=== PATIENT | female | born 1995 | race Caucasian/White ===

== ENCOUNTER 2017-09-11 09:00 | Emergency (ER) | payer SELFPAY | END 2017-09-11 10:31 | disposition home or self-care (01) | PROVIDERS: Emergency Provider Nurse Practitioner; Visit Provider Nurse Practitioner | DX: J10.1 Influenza due to other identified influenza virus with other respiratory manifestations (principal); J45.909 Unspecified asthma, uncomplicated; Z88.1 Allergy status to other antibiotic agents; Z88.2 Allergy status to sulfonamides | CPT/HCPCS: 87804; 87880; 99201 ==

== ENCOUNTER 2018-11-21 06:17 | Outpatient (CLI) | payer OTHER, SELFPAY ==
[2018-11-21 06:27] VITALS: BMI 39.6
[2018-11-21 06:56] VITALS: BP 113/78; PULSE 104; RESP 18; TEMP 36.7; O2SAT 97; BMI 39.6
[2018-11-21 07:31] LABS: Microscopic, Urine URINE MICROSCOPIC (MICROSCOPIC)
[2018-11-21 07:40] LABS: Appearance,Urine SL CLOUDY (Clear); Bilirubin,Urine Negative (Negative); Blood, Urine Negative (Negative); Color,Urine YELLOW (Yellow); Glucose,Urine (UA) Negative (Negative); Ketones,Urine Negative (Negative); Leukocyte Esterase,Urine 1+ (Negative); Nitrate,Urine Negative (Negative); PH,Urine 6.5 (5.0-8.5); Protein,Urine Negative (Negative); Specific Gravity, Urine 1.015 (1.005-1.030); Urobilinogen,Urine 0.2 EU/dl (0.2)
[2018-11-21 07:47] LABS: Amphetamine/Metha Screen,Urine Negative ng/mL (<1000); Barbiturates Screen,Urine Negative ng/mL (<200); Benzodiazepines Screen,Urine Negative ng/mL (<200); Cannabinoid Screen,Urine Negative ng/mL (<50); Cocaine Screen,Urine Negative ng/mL (<300); Methadone Screen,Urine Negative ng/mL (<300); Opiate Screen,Urine Negative ng/mL (<300); Phencyclidine Screen,Urine Negative ng/mL (<25)
[2018-11-21 07:51] LABS: Bacteria,Urine Trace /lpf; Squamous Epithelial Cell,Urine 20-50 #/hpf (0-5)
== END 2018-11-21 08:00 | disposition home or self-care (01) ==
LOC: OBOUT 06:21 → OB 06:21
PROVIDERS: Obstetrics & Gynecology; PCP Emergency Medicine; Visit Provider Obstetrics & Gynecology
DX: O26.893 Other specified pregnancy related conditions, third trimester (principal); Z3A.38 38 weeks gestation of pregnancy; R10.30 Lower abdominal pain, unspecified; M54.5 Low back pain
CPT/HCPCS: 59025; 80305; 81001; 87086

== ENCOUNTER → 2019-11-18 11:22 | Outpatient (CLI) | payer OTHER, SELFPAY ==
[2019-11-18 11:41] LABS: Basophils % 0.3 % (0.1-2.0); Eosinophils # 0.1 K/mm3 (0.0-0.4); Eosinophils % 1.7 % (0.1-12.0); Hematocrit 41.7 % (37.0-47.0); Hemoglobin 13.6 g/dL (12.2-16.2); Lymphocytes % 33.7 % (10-50); Mean Corpuscular HGB Conc 32.6 g/dL (31.8-35.4); Mean Corpuscular Hemoglobin 29.3 pg (27.0-31.2); Mean Corpuscular Volume 89.8 fl (81-99); Mean Platelet Volume 9.4 fl (7.4-10.4); Monocytes # 0.3 K/mm3 (0.1-1.0); Monocytes % 4.1 % (1.7-9.3); Neutrophils # 3.6 K/mm3 (1.8-7.8); Neutrophils % 60.2 % (37.0-80.0); Platelet Count 228 K/mm3 (142-424); Red Blood Count 4.64 M/mm3 (4.20-5.40); Red Cell Distribution Width 13.1 % (11.5-17.5); White Blood Count 5.9 K/mm3 (4.8-10.8)
[2019-11-18 13:16] LABS: Alanine Aminotransferase 16 U/L (12-78); Albumin Level 4.6 g/dl (3.5-5.0); Albumin/Globulin Ratio 1.4 (1.1-1.8); Alkaline Phosphatase 61 U/L (38-126); Aspartate Amino Transferase 25 U/L (14-36); Blood Urea Nitrogen 10 mg/dl (7-17); Calcium 9.7 mg/dl (8.4-10.2); Carbon Dioxide 27 mmol/L (22.0-30.0); Chloride 102 mmol/L (98-107); Estimated Glomerular Filt Rate 122 ml/min (>60); GFR (African American) 147 ML/MIN (>60); Globulin 3.2 g/dL (1.3-3.2); Glucose 74 mg/dl (74-100); Sodium 137 mmol/L (136-145); Total Protein,Serum 7.8 g/dl (6.3-8.2)
[2019-11-19 16:22] LABS: Vitamin B12 371 pg/mL (232-1245); Vitamin D 25 Hydroxy 25.9 ng/mL (30.0-100.0)
== END ==
PROVIDERS: Visit Provider Nurse Practitioner Family
DX: R20.2 Paresthesia of skin (principal); R42 Dizziness and giddiness; E55.9 Vitamin D deficiency, unspecified
CPT/HCPCS: 36415; 80053; 82607; 82652; 84443; 85025

== ENCOUNTER → 2019-11-27 09:41 | Outpatient (CLI) | payer OTHER, SELFPAY ==
--- NOTE | 2019-11-27 09:44 | MR_ITS ---
PROCEDURE: MR HEAD/BRAIN WO/W CON CLINICAL INDICATION: PARESTHESIA, DIZZINESS, MIGRAINE W/AURA AND WOUT STATUS MIGR Severe headache COMPARISON: No exams were available for comparison TECHNIQUE: Routine multiplanar multi echo sequences are performed without and with gadolinium enhancement. FINDINGS: No midline shift, mass effect, intracranial hemorrhage, or hydrocephalus is evident. The cerebellopontine angles, cerebellum, and brainstem are unremarkable. No enhancing lesions are evident. 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 No abnormal enhancement of the wall. No thickening of the wall. The pituitary, optic chiasm, corpus callosum, and craniocervical junction have an unremarkable appearance. There is opacified left anterior ethmoid air cell. No sinus air-fluid levels or mastoid effusion. IMPRESSION: 1. No acute intracranial findings. 2. 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 Dictated by: Refugio Sanders MD 11/28/2019 11:01 Electronically signed by Refugio Sanders MD in [place] 11/28/2019 11:01
== END ==
PROVIDERS: PCP Nurse Practitioner Family; Visit Provider Nurse Practitioner Family
DX: G43.109 Migraine with aura, not intractable, without status migrainosus (principal); R20.2 Paresthesia of skin; R42 Dizziness and giddiness
CPT/HCPCS: 70553; A9576

== ENCOUNTER 2020-06-09 09:09 | Emergency (ER) | payer OTHER, SELFPAY ==
[2020-06-09 09:10] VITALS: BP 102/75; PULSE 72; RESP 16; TEMP 36.6; O2SAT 98; BMI 35.7
--- NOTE | 2020-06-09 09:42 | HMH.EDUTC ---
[facility] [place] Disposition Clinical Impression: Sinusitis Qualifiers: Sinusitis location: unspecified location Chronicity: unspecified Qualified Code(s): J32.9 - Chronic sinusitis, unspecified Disposition: Home, Self-Care Condition on Discharge: Good Instructions: Sinusitis, Sinus Headache, DI for Sinusitis Additional Instructions: *Monitor Temp, Over the counter Motrin or Tylenol as directed/as needed Tylenol every 4 hours and Motrin every 6 hours (as long as your family doctor has told you that you can take it) for fever or pain. and straight to ER if unable to lower temp less than 101.0 after medication given *Warm salt water gargles may help to soothe the throat *Throat Lozenges *Warm fluids like tea with honey may help to soothe the throat *Sleep elevated *Humidifier/Vaporizer *Flonase 2 sprays in each nostril daily but be aware that it may take 2-3 days before you notice improvement Take medication as prescribed Follow up IMMEDIATELY for new or worsening symptoms or no Noticeable improvement over the next 48-72 hours. 911 for difficulty breathing or swallowing Prescriptions: Fluticasone Propionate [Flonase 50mcg nasal spray 16gm] 1 - 2 spr NS DAILY #1 bottle Transmission Status: Received by [facility] # methylPREDNISolone [Medrol 4mg tab] 4 mg PO DIRECTED #21 tab Transmission Status: Received by [facility] # Azithromycin [Z-Zach 250mg Tab] 250 mg PO DIRECTED #6 tab Transmission Status: Received by [facility] # Referrals: Honey Duran PA [Physician National Insurance Officer] - Time of Disposition: 09:49 Medical Decision Making - [place] Inquiry Pt receiving controlled substance: No [place] was queried for this patient: No Vital Signs: 06/09/20 09:10 06/09/20 09:55 Temperature 97.8 F 98.2 F Temperature Source Oral Oral Pulse Rate 70 Pulse Rate [Right] 72 Respiratory Rate 16 16 Blood Pressure 128/70 Blood Pressure [Right Arm] 102/75 L Blood Pressure Mean [Right Arm] 84 Blood Pressure Source Automatic Cuff Blood Pressure Source [Right Arm] Automatic Cuff Blood Pressure Position Sitting Blood Pressure Position [Right Arm] Sitting 02 Sat by Pulse Oximetry 98 Oxygen Delivery Method Room Air Room Air [facility] [place] HPI - General Stated complaint: sinus infection symptoms Time Seen by Provider: 06/09/20 09:43 Mode of Arrival: Ambulatory Source of Information: Patient Limitations: No Limitations Description of Symptoms (Recalled from Triage Doc. by RN): PT c/o sinus pressure and pain for the past three days HEENT Symptoms (Recalled from RN notes): Yes (sinus pain) Resp Symptoms (Recalled from RN notes): No Skin Symptoms (Recalled from RN notes): No MS Symptoms (Recalled from RN notes): No Functional Status (Recalled from RN notes): na - History of Present Illness Provider Complaint: Patient states that she has been having sinus pain and pressure for over a week that has got worse over the last 3 days States that today she noticed she was blowing out yellowish green mucous and her throat was scratchy so she came in to get checked - Related Data Previous Rx's Medication Instructions Recorded Azithromycin [Z-Zach 250mg Tab] 250 mg PO DIRECTED #6 tab 06/09/20 Fluticasone Propionate [Flonase 1 - 2 spr NS DAILY #1 bottle 06/09/20 50mcg nasal spray 16gm] methylPREDNISolone [Medrol 4mg 4 mg PO DIRECTED #21 tab 06/09/20 tab] Allergies Allergy/AdvReac Type Severity Reaction Status Date / Time amoxicillin [AMOXICILLIN] Allergy Intermediate Verified 06/09/20 09:20 Sulfa (Sulfonamide Allergy Intermediate Verified 06/09/20 09:20 Antibiotics) [SULFA (SULFONAMIDE ANTIBIOTICS)] - Worker's Comp Is this a Worker's Comp case?: No [facility] History - Hepatitis A Screen Drug use history?: No High risk sexual behaviors?: No History of sexually transmitted infection?: No Currently employed?: No Childcare worker?: No Do you h
[2020-06-09 09:55] VITALS: BP 128/70; PULSE 70; RESP 16; TEMP 36.8; O2SAT 98
== END 2020-06-09 09:56 | disposition home or self-care (01) ==
PROVIDERS: Emergency Provider Nurse Practitioner; PCP Nurse Practitioner Family
DX: J32.9 Chronic sinusitis, unspecified (principal); Z88.1 Allergy status to other antibiotic agents; Z88.2 Allergy status to sulfonamides
CPT/HCPCS: 99201

== ENCOUNTER → 2021-05-13 11:08 | Outpatient (CLI) | payer OTHER, SELFPAY | DX: Z01.812 Encounter for preprocedural laboratory examination (principal); Z11.52 Encounter for screening for COVID-19 | CPT/HCPCS: U0003 ==

== ENCOUNTER → 2021-06-06 14:02 | Outpatient (CLI) | payer OTHER, SELFPAY | PROVIDERS: PCP Internal Medicine Adolescent Medicine; Visit Provider Nurse Practitioner | DX: Z20.822 Contact with and (suspected) exposure to COVID-19 (principal) | CPT/HCPCS: C9803; U0003; U0005 ==

== ENCOUNTER 2021-07-05 17:46 | Emergency (ER) | payer OTHER, SELFPAY ==
[2021-07-05 18:43] VITALS: BP 148/76; PULSE 89; RESP 18; TEMP 36.9; O2SAT 100; BMI 34.9
[2021-07-05 18:58] LABS: UTC Strep Screen (Rapid) Positive (Negative)
--- NOTE | 2021-07-05 19:13 | HMH.EDUTC ---
[facility] [place] Disposition Clinical Impression: Strep throat Disposition: Home, Self-Care Condition on Discharge: Good Instructions: Strep Throat, DI for Strep Throat Additional Instructions: Drink plenty of fluids. Take tylenol or ibuprofen for pain or fever. Take the medications as directed. Follow up with your regular doctor. GO TO THE ER FOR ANY WORSENING SYMPTOMS Throw your tooth brush away and get a new one. Prescriptions: Brompheniramine/Pseudoephed/Dm [Bromfed Dm Cough Syrup] 5 ml PO Q6HP PRN #240 ml PRN Reason: Cough Transmission Status: Received by [facility] # predniSONE [Deltasone 10mg tablet] 10 mg PO BID 3 Days #6 tab Transmission Status: Received by [facility] # Cefdinir [Omnicef 300mg Capsule] 300 mg PO BID #20 cap Transmission Status: Received by [facility] # Referrals: Luca Salgado MD [Primary Care Provider] - Forms: Work/School Release Time of Disposition: 19:16 Medical Decision Making - Medical Records Medical records reviewed: No: I reviewed the patient's medical records. - [place] Inquiry Pt receiving controlled substance: No Vital Signs: 07/05/21 18:43 07/05/21 19:17 Temperature 98.4 F 98.4 F Temperature Source Oral Pulse Rate 89 Pulse Rate [Left] 89 Respiratory Rate 18 16 Blood Pressure 148/76 H Blood Pressure [Right Arm] 148/76 H Blood Pressure Mean [Right Arm] 100 02 Sat by Pulse Oximetry 100 - Lab Data Lab results reviewed: Yes: I reviewed the patient's lab results. Lab Results 07/05/21 18:52: Strep Scn Rapid Clinic Positive A [facility] [place] HPI - General Stated complaint: sore throat,cough,maik,runny nose Time Seen by Provider: 07/05/21 19:13 Mode of Arrival: Ambulatory Source of Information: Patient Description of Symptoms (Recalled from Triage Doc. by RN): pt c/o a persistant cough, sore throat and nasal drainage/congestion x2 weeks. HEENT Symptoms (Recalled from RN notes): Yes (sore throat and runny nose) Resp Symptoms (Recalled from RN notes): Yes (cough) Skin Symptoms (Recalled from RN notes): No MS Symptoms (Recalled from RN notes): No Functional Status (Recalled from RN notes): na - History of Present Illness Provider Complaint: She c/o sore throat for the past 1 week. She has been tested for covid twice and it has been negative. She has had chilling and a dry cough also. She works in a day care. - Related Data Previous Rx's Medication Instructions Recorded Azithromycin [Z-Zach 250mg Tab] 250 mg PO DIRECTED #6 tab 06/09/20 Fluticasone Propionate [Flonase 1 - 2 spr NS DAILY #1 bottle 06/09/20 50mcg nasal spray 16gm] methylPREDNISolone [Medrol 4mg 4 mg PO DIRECTED #21 tab 06/09/20 tab] Brompheniramine/Pseudoephed/Dm 5 ml PO Q6HP PRN #240 ml 07/05/21 [Bromfed Dm Cough Syrup] Cefdinir [Omnicef 300mg Capsule] 300 mg PO BID #20 cap 07/05/21 predniSONE [Deltasone 10mg tablet] 10 mg PO BID 3 Days #6 tab 07/05/21 Allergies Allergy/AdvReac Type Severity Reaction Status Date / Time amoxicillin [AMOXICILLIN] Allergy Intermediate Verified 06/09/20 09:20 Sulfa (Sulfonamide Allergy Intermediate Verified 06/09/20 09:20 Antibiotics) [SULFA (SULFONAMIDE ANTIBIOTICS)] - Worker's Comp Is this a Worker's Comp case?: No [facility] History - Hepatitis A Screen Drug use history?: No High risk sexual behaviors?: No History of sexually transmitted infection?: No Currently employed?: No Childcare worker?: No Do you have indoor plumbing?: Yes Do you have electricity?: Yes Attestation statement:: This patient has been screened for Hepatitis A risk factors. I have reviewed the patient's past medical history: Yes Medical History: Denies:: Cancer, Diabetes Mellitus Type 1, Diabetes Mellitus Type 2 (gestational diabetes with first ), MRSA Laterality Cases: Bilateral: Tonsillectomy Other Surgeries: No: Amputation: No Fractures: No - So
[2021-07-05 19:17] VITALS: BP 148/76; PULSE 89; RESP 16; TEMP 36.9
== END 2021-07-05 19:21 | disposition home or self-care (01) ==
PROVIDERS: Emergency Provider Nurse Practitioner Family; PCP Internal Medicine Adolescent Medicine
DX: J02.0 Streptococcal pharyngitis (principal)
CPT/HCPCS: 87880; 99202; G0463

== ENCOUNTER 2021-07-12 11:54 | Emergency (ER) | payer OTHER, SELFPAY ==
[2021-07-12 11:54] VITALS: BP 135/85; PULSE 100; RESP 20; TEMP 36.7; O2SAT 100; BMI 35.9
--- NOTE | 2021-07-12 13:22 | HMH.EDUTC ---
[facility] [place] Disposition Clinical Impression: Cough Disposition: Home, Self-Care Condition on Discharge: Good Instructions: Cough, Benzonatate Additional Instructions: *Monitor Temp, Over the counter Motrin or Tylenol as directed/as needed Tylenol every 4 hours and Motrin every 6 hours (as long as your family doctor has told you that you can take it) for fever or pain. and straight to ER if unable to lower temp less than 101.0 after medication given *Warm salt water gargles may help to soothe the throat *Throat Lozenges *Warm fluids like tea with honey may help to soothe the throat *Sleep elevated *Humidifier/Vaporizer Take cough medication as prescribed Follow up IMMEDIATELY for new or worsening symptoms or no Noticeable improvement over the next 48-72 hours. 911 for difficulty breathing or swallowing You were tested for today for COVID19 your test result should be back in the next 24-48 hours, you may check your [facility] Portal for your results if you have problems logging on you may call the [facility] You was given a handout with instructions for Self Quarantine and Self isolation for while you wait on test results and what to do if they are positive If you are positive the Health Dept will be contacting you also Make sure to take your Vitamins Vit. C Vit D and Zinc if you can take them Prescriptions: Benzonatate [Tessalon Perle 100mg Cap*] 100 mg PO TID PRN #30 cap PRN Reason: Cough Transmission Status: Pending to [facility] #[id number] Referrals: Luca Salgado MD [Primary Care Provider] - Forms: Work/School Release Time of Disposition: 13:28 Medical Decision Making - [place] Inquiry Pt receiving controlled substance: No [place] was queried for this patient: No Vital Signs: 07/12/21 11:54 Temperature 98.1 F Temperature Source Oral Pulse Rate [Left Radial] 100 H Respiratory Rate 20 Blood Pressure [Right Arm] 135/85 Blood Pressure Mean [Right Arm] 101 Blood Pressure Source [Right Arm] Automatic Cuff Blood Pressure Position [Right Arm] Sitting 02 Sat by Pulse Oximetry 100 Oxygen Delivery Method Room Air [facility] [place] HPI - General Stated complaint: cough Time Seen by Provider: 07/12/21 13:22 Mode of Arrival: Ambulatory Source of Information: Patient Limitations: No Limitations Description of Symptoms (Recalled from Triage Doc. by RN): persistant cough and body aches, coughing so much it makes her jaw lock up HEENT Symptoms (Recalled from RN notes): No Resp Symptoms (Recalled from RN notes): Yes Skin Symptoms (Recalled from RN notes): No MS Symptoms (Recalled from RN notes): No Functional Status (Recalled from RN notes): na - History of Present Illness Provider Complaint: Patient states that she was recently seen and treated for strep throat and cough States that she has used all her cough medication and still having cough States that she was worried that she may have COVID and wanted to get tested again due to she started having low grade fever and body aches - Related Data Previous Rx's Medication Instructions Recorded Azithromycin [Z-Zach 250mg Tab] 250 mg PO DIRECTED #6 tab 06/09/20 Fluticasone Propionate [Flonase 1 - 2 spr NS DAILY #1 bottle 06/09/20 50mcg nasal spray 16gm] methylPREDNISolone [Medrol 4mg 4 mg PO DIRECTED #21 tab 06/09/20 tab] Brompheniramine/Pseudoephed/Dm 5 ml PO Q6HP PRN #240 ml 07/05/21 [Bromfed Dm Cough Syrup] Cefdinir [Omnicef 300mg Capsule] 300 mg PO BID #20 cap 07/05/21 predniSONE [Deltasone 10mg tablet] 10 mg PO BID 3 Days #6 tab 07/05/21 Benzonatate [Tessalon Perle 100mg 100 mg PO TID PRN #30 cap 07/12/21 Cap*] Allergies Allergy/AdvReac Type Severity Reaction Status Date / Time amoxicillin [AMOXICILLIN] Allergy Intermediate Verified 06/09/20 09:20 Sulfa (Sulfonamide Allergy Intermediate Verified 06/09/20 09:20 Antibiotics) [SULFA (SULFONAMIDE ANTIBIOTICS)] - Worker's Comp Is this a Worker's Comp case?: No [facility] His
[2021-07-12 13:43] VITALS: BP 135/85; PULSE 100; RESP 20; TEMP 36.7; O2SAT 100
== END 2021-07-12 13:45 | disposition home or self-care (01) ==
PROVIDERS: Emergency Provider Nurse Practitioner; PCP Internal Medicine Adolescent Medicine
DX: U07.1 COVID-19 (principal); R05.3 Chronic cough
CPT/HCPCS: 99202; C9803; G0463; U0003; U0005

== ENCOUNTER 2021-11-17 14:03 | Emergency (ER) | payer OTHER, SELFPAY ==
[2021-11-17] VITALS (7 sets, daily range): BP systolic 98–136; BP diastolic 53–84; PULSE 94–102; RESP 16–18; TEMP 36.9–37.1; O2SAT 97–100; BMI 36.6
[2021-11-17 14:28] LABS: Microscopic, Urine URINE MICROSCOPIC (MICROSCOPIC)
--- NOTE | 2021-11-17 14:34 | HMH.EDNVD ---
ED Disposition Clinical Impression: Gastroenteritis Disposition: Home, Self-Care Condition on Discharge: Good Instructions: DI for Viral Gastroenteritis -- Adult Prescriptions: Promethazine HCl [Phenergan 25mg tab] 25 mg PO BID #12 tab Transmission Status: Pending to [facility] #[id number] Referrals: Luca Salgado MD [Primary Care Provider] - - Critical Care Critical Care Time: No Attestation: On 11/17/21, the high probability of a clinically significant, sudden or life threatening deterioration of the following system(s) required my full and direct attention, intervention and personal management. The time I documented below is in addition to time spent performing reported procedures but includes the following listed in this critical care notation. Medical Decision Making - Medical Records Medical records reviewed: Yes: I reviewed the patient's medical records. - [place] Inquiry Pt receiving controlled substance: No Vital Signs: 11/17/21 14:04 Temperature 98.7 F Temperature Source Oral Pulse Rate [Radial] 102 H Respiratory Rate 16 Blood Pressure [Right Arm] 136/84 Blood Pressure Mean [Right Arm] 101 Blood Pressure Position [Right Arm] Sitting 02 Sat by Pulse Oximetry 98 Oxygen Delivery Method Room Air - Lab Data Lab Results 11/17/21 14:00: Urine Color Yellow, Urine Appearance Cloudy, Urine pH 5.5, Ur Specific [place] >= 1.030, Urine Protein Trace, Urine Glucose (UA) Negative, Urine Ketones 1+, Urine Blood Negative, Urine Nitrate Negative, Urine Bilirubin Negative, Urine Urobilinogen 0.2, Ur Leukocyte Esterase Negative 11/17/21 14:00: Urine HCG, Qual Negative 11/17/21 14:37: WBC 13.3 H, RBC 5.14, Hgb 15.3, Hct 46.8, MCV 90.9, MCH 29.7, MCHC 32.6, RDW 12.9, Plt Count 288, MPV 9.4, Neut % (Auto) 90.8 H, Lymph % (Auto) 3.9 L, Morris % (Auto) 2.1, Eos % (Auto) 1.9, Baso % (Auto) 1.2, Neut # (Auto) 12.1 H, Lymph # (Auto) 0.5 L, Morris # (Auto) 0.3, Eos # (Auto) 0.3, Baso # (Auto) 0.2 11/17/21 14:37: Sodium 136, Potassium 4.2, Chloride 101, Carbon Dioxide 26, Anion Gap 13.2, BUN 12, Creatinine 0.50 L, Estimated Creat Clear 266, Estimated GFR 148, Est GFR ( Amer) 179, Glucose 110 H, Calcium 8.9, Total Bilirubin 1.3, AST 53 H, ALT 62, Alkaline Phosphatase 73, Total Protein 8.2, Albumin 4.7, Globulin 3.5 H, Albumin/Globulin Ratio 1.3 11/17/21 14:37: Lipase 42 Result diagrams: 11/17/21 14:37 11/17/21 14:37 Orders (Tests/Meds): ED MEDICATIONS Generic Name Dose Route Start Last Admin Trade Name Freq PRN Reason Stop Dose Admin Sodium Chloride 1,000 mls @ 999 mls/hr 11/17/21 14:30 11/17/21 14:25 Sod Chlor 0.9% 1000ml Bag IV 11/17/21 15:30 999 mls/hr .Q1H1M NADER Administration Sodium Chloride 1,000 mls @ 999 mls/hr 11/17/21 14:30 Sod Chlor 0.9% 1000ml Bag IV 11/17/21 15:30 .Q1H1M NADER Discontinued Medications Generic Name Dose Route Start Last Admin Trade Name Freq PRN Reason Stop Dose Admin Ondansetron HCl 4 mg 11/17/21 14:23 11/17/21 14:25 Ondansetron 4mg/2ml Vial IV 11/17/21 14:24 4 mg ONCE ONE Administration Promethazine HCl 25 mg 11/17/21 14:23 11/17/21 14:25 Promethazine Hcl 25mg/Ml 1ml Vial IV 11/17/21 14:24 25 mg ONCE ONE Administration Sodium Chloride 25 ml 11/17/21 14:23 Sodium Chloride 0.9% 25ml Bag IV 11/17/21 14:24 ONCE ONE ORDERS Category Date Time Status CBC w/Auto Diff [Complete Blood Count Auto Diff] Stat Lab 11/17/21 14:37 Results Rapid PCR Covid and Flu A/B Stat Lab 11/17/21 14:22 Ordered Serum [HCG Qualitative, Serum] Stat Lab 11/17/21 14:37 Received Urinalysis and Microscopic Stat Lab 11/17/21 14:00 Results - Reevaluation(s) Time: 15:13 Reevaluation #1: On reevaluation, the patient is feeling much better. Repeat abdominal examination is benign. No evidence of acute abdomen. She tolerated oral intake. I do believe patient symptoms consistent with gastroenteritis. Patient be
[2021-11-17 14:38] LABS: Bilirubin,Urine Negative (Negative); Blood, Urine Negative (Negative); Color,Urine YELLOW (Yellow); Glucose,Urine (UA) Negative (Negative); Ketones,Urine 1+ (Negative); Leukocyte Esterase,Urine Negative (Negative); Nitrate,Urine Negative (Negative); PH,Urine 5.5 (5.0-8.5); Protein,Urine TRACE (Negative); Specific Gravity, Urine >= 1.030 (1.005-1.030); Urobilinogen,Urine 0.2 EU/dl (0.2)
[2021-11-17 14:44] LABS: Appearance,Urine Cloudy (Clear)
[2021-11-17 14:45] LABS: Urine Pregnancy, HCG Qual. Negative (Negative)
[2021-11-17 14:56] LABS: Alanine Aminotransferase 62 U/L (12-78); Albumin Level 4.7 g/dl (3.5-5.0); Albumin/Globulin Ratio 1.3 (1.1-1.8); Alkaline Phosphatase 73 U/L (38-126); Anion Gap 13.2 mEq/L (5-15); Aspartate Amino Transferase 53 U/L (14-36); Basophils # 0.2 K/mm3 (0-0.2); Basophils % 1.2 % (0.1-2.0); Bilirubin,Total 1.3 mg/dl (0.2-1.3); Blood Urea Nitrogen 12 mg/dl (7-17); Calcium 8.9 mg/dl (8.4-10.2); Carbon Dioxide 26 mmol/L (22.0-30.0); Chloride 101 mmol/L (98-107); Creatinine Clearance Estimated 266 mL/min (50-200); Eosinophils # 0.3 K/mm3 (0.0-0.4); Eosinophils % 1.9 % (0.1-12.0); Estimated Glomerular Filt Rate 148 ml/min (>60); GFR (African American) 179 ML/MIN (>60); Globulin 3.5 g/dL (1.3-3.2); Glucose 110 mg/dl (74-100); Hematocrit 46.8 % (37.0-47.0); Hemoglobin 15.3 g/dL (12.2-16.2); Lipase 42 U/L (23-300); Lymphocytes # 0.5 K/mm3 (0.7-4.5); Lymphocytes % 3.9 % (10-50); Mean Corpuscular HGB Conc 32.6 g/dL (31.8-35.4); Mean Corpuscular Hemoglobin 29.7 pg (27.0-31.2); Mean Corpuscular Volume 90.9 fl (81-99); Mean Platelet Volume 9.4 fl (7.4-10.4); Monocytes # 0.3 K/mm3 (0.1-1.0); Monocytes % 2.1 % (1.7-9.3); Neutrophils # 12.1 K/mm3 (1.8-7.8); Neutrophils % 90.8 % (37.0-80.0); Platelet Count 288 K/mm3 (142-424); Potassium 4.2 mmoL/L (3.5-5.1); Red Blood Count 5.14 M/mm3 (4.20-5.40); Red Cell Distribution Width 12.9 % (11.5-17.5); Sodium 136 mmol/L (136-145); Total Protein,Serum 8.2 g/dl (6.3-8.2); White Blood Count 13.3 K/mm3 (4.8-10.8)
[2021-11-17 15:08] LABS: MANUAL DIFFERENTIAL MANUAL DIFFERENTIAL (MANUAL DIFF)
[2021-11-17 15:13] LABS: HCG Qualitative, Serum Negative (Negative)
[2021-11-17 15:26] LABS: Bacteria,Urine 1+ /lpf; RBC,Urine Occasional #/hpf (0-3); Squamous Epithelial Cell,Urine Occasional #/hpf (0-5)
[2021-11-17 15:29] LABS: Amorphous Sediment,Urine 4+ /lpf
[2021-11-17 16:10] LABS: Coronavirus 19, PCR Not Detected (NotDetected); Influenza A, PCR Not Detected (NotDetected); Influenza B, PCR Not Detected (NotDetected)
[2021-11-17 17:16] LABS: Hypochromasia 2+; Lymphocytes % 12 % (10-50); Monocytes % 10 % (2-9); Neutrophils % 78 % (42-76); Platelet Estimate Normal; Tear Drop Cells 1+; Total Cells Counted 100
== END 2021-11-17 18:15 | disposition home or self-care (01) ==
PROVIDERS: Emergency Provider Emergency Medicine; PCP Internal Medicine Adolescent Medicine
DX: R11.2 Nausea with vomiting, unspecified (principal); R19.7 Diarrhea, unspecified; R53.1 Weakness; R50.9 Fever, unspecified; Z20.822 Contact with and (suspected) exposure to COVID-19; Z79.51 Long term (current) use of inhaled steroids; Z79.52 Long term (current) use of systemic steroids; Z79.899 Other long term (current) drug therapy; Z88.0 Allergy status to penicillin; Z88.2 Allergy status to sulfonamides
CPT/HCPCS: 80053; 81001; 81025; 83690; 84703; 85007; 85025; 96361; 99284; C9803; J2405; U0003; U0005

== ENCOUNTER 2022-02-05 16:02 | Emergency (ER) | payer OTHER, SELFPAY ==
--- NOTE | 2022-02-05 16:25 | HMH.EDUTC ---
[facility] [place] Disposition Clinical Impression: Skin abscess Qualifiers: Site of cutaneous abscess: extremity Site of cutaneous abscess of extremity: lower extremity Laterality: left Qualified Code(s): L02.416 - Cutaneous abscess of left lower limb Disposition: Home, Self-Care Condition on Discharge: Good Instructions: Boil Additional Instructions: Keep the affected area clean and dry. Follow up with your regular doctor. Take the antibiotics as directed and apply the topical antibiotics as directed. Apply warm wet compresses to the affected area three or four times per day. GO TO THE ER FOR ANY WORSENING SYMPTOMS Prescriptions: Mupirocin [Bactroban 2% Ointment 22gm tube] 1 applicatio TP TID 7 Days #1 gm Transmission Status: Received by [id number] clindamycin HCL [Cleocin HCl] 300 mg PO Q8H 10 Days #30 cap Transmission Status: Received by [id number] Referrals: Jose Luis Morrison MD [Primary Care Provider] - Time of Disposition: 17:10 Medical Decision Making - Medical Records Medical records reviewed: No: I reviewed the patient's medical records. - [place] Inquiry Pt receiving controlled substance: No Vital Signs: 02/05/22 16:28 02/05/22 17:13 Temperature 98.1 F 98.1 F Temperature Source Oral Pulse Rate 94 H Pulse Rate [Left Radial] 94 H Respiratory Rate 19 19 Blood Pressure 105/76 L Blood Pressure [Right Arm] 105/76 L Blood Pressure Mean [Right Arm] 85 02 Sat by Pulse Oximetry 95 [facility] [place] HPI - General Stated complaint: spot on R Leg Time Seen by Provider: 02/05/22 16:25 - History of Present Illness Provider Complaint: She states that she has a tender red area on her left upper inner thigh. This has been present for the past 3 days. She states that it is getting more sore as time goes on . She denies any fever or chills. She denies any other skin issues. - Related Data Previous Rx's Medication Instructions Recorded Azithromycin [Z-Zach 250mg Tab] 250 mg PO DIRECTED #6 tab 06/09/20 Fluticasone Propionate [Flonase 1 - 2 spr NS DAILY #1 bottle 06/09/20 50mcg nasal spray 16gm] methylPREDNISolone [Medrol 4mg 4 mg PO DIRECTED #21 tab 06/09/20 tab] Brompheniramine/Pseudoephed/Dm 5 ml PO Q6HP PRN #240 ml 07/05/21 [Bromfed Dm Cough Syrup] Cefdinir [Omnicef 300mg Capsule] 300 mg PO BID #20 cap 07/05/21 predniSONE [Deltasone 10mg tablet] 10 mg PO BID 3 Days #6 tab 07/05/21 Benzonatate [Tessalon Perle 100mg 100 mg PO TID PRN #30 cap 07/12/21 Cap*] Promethazine HCl [Phenergan 25mg 25 mg PO BID #12 tab 11/17/21 tab] Mupirocin [Bactroban 2% Ointment 1 applicatio TP TID 7 Days #1 gm 02/05/22 22gm tube] clindamycin HCL [Cleocin HCl] 300 mg PO Q8H 10 Days #30 cap 02/05/22 Allergies Allergy/AdvReac Type Severity Reaction Status Date / Time amoxicillin [AMOXICILLIN] Allergy Intermediate Verified 02/05/22 16:27 Sulfa (Sulfonamide Allergy Intermediate Verified 02/05/22 16:27 Antibiotics) [SULFA (SULFONAMIDE ANTIBIOTICS)] [facility] History - Hepatitis A Screen Attestation statement:: This patient has been screened for Hepatitis A risk factors. I have reviewed the patient's past medical history: Yes Medical History: Denies:: Cancer, Diabetes Mellitus Type 1, Diabetes Mellitus Type 2 (gestational diabetes with first ), MRSA Laterality Cases: Bilateral: Tonsillectomy Other Surgeries: No: Amputation: No Fractures: No - Social History Smoking Status: Never smoker Alcohol Intake: never Occupational Status: employed ROS Obtained: Yes All systems reviewed & no additional complaints - Constitutional Constitutional: Denies chills, Denies fever(s) - Musculoskeletal Musculoskeletal: Denies joint pain - Integumentary/Breasts Skin/Breast: Reports as per HPI Physical Exam - General General appearance: alert, in no apparent distress - Head Head exam: atraumatic, normocephalic, normal
[2022-02-05 16:28] VITALS: BP 105/76; PULSE 94; RESP 19; TEMP 36.7; O2SAT 95; BMI 36.6
[2022-02-05 17:13] VITALS: BP 105/76; PULSE 94; RESP 19; TEMP 36.7
== END 2022-02-05 17:15 | disposition home or self-care (01) ==
PROVIDERS: Emergency Provider Nurse Practitioner Family; PCP Emergency Medicine
DX: L02.416 Cutaneous abscess of left lower limb (principal); Z88.1 Allergy status to other antibiotic agents; Z88.2 Allergy status to sulfonamides
CPT/HCPCS: 99212; G0463

== ENCOUNTER 2022-02-25 09:19 | Emergency (ER) | payer OTHER, SELFPAY ==
[2022-02-25 09:30] VITALS: BP 133/87; PULSE 98; RESP 18; TEMP 36.8; O2SAT 95; BMI 35.9
--- NOTE | 2022-02-25 09:55 | HMH.EDUTC ---
[facility] [place] Clinical Impression: URI (upper respiratory infection) Qualifiers: URI type: unspecified URI Qualified Code(s): J06.9 - Acute upper respiratory infection, unspecified Disposition: Home, Self-Care Condition on Discharge: Good Instructions: Sore Throat, DI for Sinusitis, Azithromycin Additional Instructions: *Monitor Temp, Over the counter Motrin or Tylenol as directed/as needed Tylenol every 4 hours and Motrin every 6 hours (as long as your family doctor has told you that you can take it) for fever or pain. and straight to ER if unable to lower temp less than 101.0 after medication given *Warm salt water gargles may help to soothe the throat *Throat Lozenges *Warm fluids like tea with honey may help to soothe the throat *Sleep elevated *Humidifier/Vaporizer Take medication as prescribed Your throat swab was sent for culture. Those results are typically sent to your primary care. Be sure to follow up in 2-3 days with your family doctor/primary care physician if no improvement so they can review those result and treat if necessary. If you don?t have a primary care doctor, I recommend you get one but in the mean time, you will have to return to a walk in clinic Follow up IMMEDIATELY for new or worsening symptoms or no Noticeable improvement over the next 48-72 hours. 911 for difficulty breathing or swallowing Prescriptions: Benzonatate [Benzonatate 100mg cap] 100 mg PO Q8HP PRN #30 cap PRN Reason: Cough Transmission Status: Pending to [id number] Azithromycin [Z-Zach 250mg Tab] 250 mg PO DIRECTED #6 tab Transmission Status: P[facility] to [id number] Referrals: Luca Salgado MD [Primary Care Provider] - As needed Time of Disposition: 10:29 Medical Decision Making - [place] Inquiry Pt receiving controlled substance: No [place] was queried for this patient: No Vital Signs: 02/25/22 09:30 Temperature 98.3 F Temperature Source Oral Pulse Rate [Right Brachial] 98 H Respiratory Rate 18 Blood Pressure [Right Arm] 133/87 Blood Pressure Mean [Right Arm] 102 Blood Pressure Source [Right Arm] Automatic Cuff Blood Pressure Position [Right Arm] Sitting 02 Sat by Pulse Oximetry 95 Oxygen Delivery Method Room Air - Lab Data Lab results reviewed: Yes: I reviewed the patient's lab results. Lab Results 02/25/22 09:33: Group A Strep Rapid Negative Orders (Tests/Meds): ORDERS Category Date Time Status Strep Screen Confirmation Stat Micro 02/25/22 09:33 Received [facility] [place] - General Stated complaint: runny nose, cough, chest congestion Time Seen by Provider: 02/25/22 09:55 Mode of Arrival: Ambulatory Source of Information: Patient Limitations: No Limitations Description of Symptoms (Recalled from Triage Doc. by RN): PATIENT C/O GREEN NASAL DRAINAGE, SORE THROAT, COUGH AND CONGESTION X 1 WEEK HEENT Symptoms (Recalled from RN notes): Yes Resp Symptoms (Recalled from RN notes): Yes Skin Symptoms (Recalled from RN notes): No MS Symptoms (Recalled from RN notes): No Functional Status (Recalled from RN notes): WNL - History of Present Illness Provider Complaint: Patient states that she has been having sinus congestion with yellowish green drainage sore throat and cough for about a week States that daughters has been having sore throat and she is worried that she may have strep throat - Related Data Previous Rx's Medication Instructions Recorded Azithromycin [Z-Zach 250mg Tab] 250 mg PO DIRECTED #6 tab 02/25/22 Benzonatate [Benzonatate 100mg 100 mg PO Q8HP PRN #30 cap 02/25/22 cap] Allergies Allergy/AdvReac Type Severity Reaction Status Date / Time amoxicillin [AMOXICILLIN] Allergy Intermediate Verified 02/05/22 16:27 Sulfa (Sulfonamide Allergy Intermediate Verified 02/05/22 16:27 Antibiotics) [SULFA (SULFONAMIDE ANTIBIOTICS)] - Worker's Comp Is this a Worker's Comp case?: No [facility] History - Hepatitis A Screen Attest
[2022-02-25 10:12] LABS: Strep Scrn Group A (Rapid) Negative (Negative)
[2022-02-25 10:35] VITALS: BP 133/87; PULSE 98; RESP 18; TEMP 36.8; O2SAT 95
== END 2022-02-25 10:37 | disposition home or self-care (01) ==
PROVIDERS: Emergency Provider Nurse Practitioner; PCP Internal Medicine Adolescent Medicine
DX: J06.9 Acute upper respiratory infection, unspecified (principal); J02.9 Acute pharyngitis, unspecified; Z88.0 Allergy status to penicillin; Z88.1 Allergy status to other antibiotic agents; Z88.2 Allergy status to sulfonamides; Z88.3 Allergy status to other anti-infective agents
CPT/HCPCS: 87430; 99213; G0463

== ENCOUNTER 2022-04-13 16:47 | Emergency (ER) | payer OTHER, SELFPAY ==
[2022-04-13 17:41] VITALS: BP 131/70; PULSE 105; RESP 18; TEMP 37.6; O2SAT 99; BMI 35.5
[2022-04-13 17:49] LABS: UTC Strep Screen (Rapid) Negative (Negative)
--- NOTE | 2022-04-13 18:11 | HMH.EDUTC ---
[facility] [place] Disposition Clinical Impression: URI (upper respiratory infection) Qualifiers: URI type: unspecified URI Qualified Code(s): J06.9 - Acute upper respiratory infection, unspecified Disposition: Home, Self-Care Condition on Discharge: Good Instructions: Sore Throat, DI for Fever (Symptom) -- Adult, DI for COVID-19 (Suspected or Confirmed ), Preventing the Spread of Coronavirus Discharge Instructions Additional Instructions: *Monitor Temp, Over the counter Motrin or Tylenol as directed/as needed Tylenol every 4 hours and Motrin every 6 hours (as long as your family doctor has told you that you can take it) for fever or pain. and straight to ER if unable to lower temp less than 101.0 after medication given *Warm salt water gargles may help to soothe the throat *Throat Lozenges *Warm fluids like tea with honey may help to soothe the throat *Sleep elevated *Humidifier/Vaporizer Your throat swab was sent for culture. Those results are typically sent to your primary care. Be sure to follow up in 2-3 days with your family doctor/primary care physician if no improvement so they can review those result and treat if necessary. If you don?t have a primary care doctor, I recommend you get one but in the mean time, you will have to return to a walk in clinic Follow up IMMEDIATELY for new or worsening symptoms or no Noticeable improvement over the next 48-72 hours. 911 for difficulty breathing or swallowing You were tested for today for COVID19 your test result should be back in the next 24-48 hours, you may check your results on the [facility] My Health portal Make sure to take your Vitamins Vit. C Vit D and Zinc if you can take them Referrals: Jose Luis Morrison MD [Primary Care Provider] - Forms: Work/School Release Time of Disposition: 18:19 Medical Decision Making - [place] Inquiry Pt receiving controlled substance: No [place] was queried for this patient: No Vital Signs: 04/13/22 17:41 Temperature 99.7 F H Temperature Source Oral Pulse Rate [Radial] 105 H Respiratory Rate 18 Blood Pressure [Right Arm] 131/70 Blood Pressure Mean [Right Arm] 90 Blood Pressure Source [Right Arm] Automatic Cuff Blood Pressure Position [Right Arm] Sitting 02 Sat by Pulse Oximetry 99 Oxygen Delivery Method Room Air - Lab Data Lab results reviewed: Yes: I reviewed the patient's lab results. Lab Results 04/13/22 17:41: Strep Scn Rapid Clinic Negative Orders (Tests/Meds): ORDERS Category Date Time Status Covid-19 Nasal PCR ([facility]) Routine Lab 04/13/22 17:36 Received Strep Screen Confirmation Stat Micro 04/13/22 17:41 Received [facility] UTC HPI - General Stated complaint: COVID TEST, SORE THROAT,BODY ACHES Time Seen by Provider: 04/13/22 18:11 Mode of Arrival: Ambulatory Source of Information: Patient Limitations: No Limitations Description of Symptoms (Recalled from Triage Doc. by RN): SORE THROAT, BODY ACHES, LOW GRADE FEVER, LIGHT HEADED SINCE THIS AM HEENT Symptoms (Recalled from RN notes): Yes Resp Symptoms (Recalled from RN notes): No Skin Symptoms (Recalled from RN notes): No MS Symptoms (Recalled from RN notes): Yes Functional Status (Recalled from RN notes): N/A - History of Present Illness Provider Complaint: Patient states that she started feeling bad this morning with sore throat, nasal congestion, low grade fever, headache and body aches States that as the day went on she continued to have chills and body aches State that this evening she was still not feeling well so she came in to get checked and tested - Related Data Previous Rx's Medication Instructions Recorded Azithromycin [Z-Zach 250mg Tab] 250 mg PO DIRECTED #6 tab 02/25/22 Benzonatate [Benzonatate 100mg 100 mg PO Q8HP PRN #30 cap 02/25/22 cap] Allergies Allergy/AdvReac Type Severity Reaction Status Date / Time amoxicillin [AMOXICILLIN] Allergy Intermediate Verified 02/05/22 16:27 Sulfa (Sulfonamide Allergy Intermediate Verified 0
[2022-04-13 18:16] VITALS: BP 131/70; PULSE 105; RESP 20; TEMP 37.6; O2SAT 99
== END 2022-04-13 18:23 | disposition home or self-care (01) ==
PROVIDERS: Emergency Provider Nurse Practitioner; PCP Emergency Medicine
DX: U07.1 COVID-19 (principal)
CPT/HCPCS: 87880; 99212; C9803; G0463; U0003; U0005

== ENCOUNTER 2022-07-02 13:20 | Emergency (ER) | payer OTHER, SELFPAY ==
[2022-07-02 14:10] VITALS: BP 131/89; PULSE 87; RESP 18; TEMP 36.8; O2SAT 100; BMI 39.7
--- NOTE | 2022-07-02 14:20 | EXP.UTC ---
Discharge Plan Disposition Patient Disposition: Home, Self-Care Condition: Good Prescriptions Prescriptions: New methylprednisolone [Medrol (Zach)] 4 mg tablets,dose pack See Rx Instructions .Route .COMPLEX 6 Days Qty: 21 0RF Rx Instructions: taper pack; cefdinir 300 mg capsule 300 mg PO BID Qty: 20 0RF ciprofloxacin-dexamethasone [Ciprodex] 0.3-0.1 % drops,suspension 4 drp otic (ear) BID 7 Days Qty: 7.5 0RF Rx Instructions: apply to right ear No Action azithromycin 250 MG tablet 250 mg PO DIRECTED Qty: 6 0RF Rx Instructions: Take two (2) tablets on day #1, then one (1) tablet day #2 thru #5 benzonatate 100 MG capsule 100 mg PO Q8HP PRN (Reason: Cough) Qty: 30 0RF Referrals Follow up/Referrals: Luca Salgado MD [Primary Care Provider] - See instructions Activity Restrictions/Add. Instructions Additional Instructions/Restrictions: Take medication as prescribed Warm compresses may help with pain and help ear to drain Follow up with your Family Doctor if no improvement or any worsening of symptoms Return if needed Straight to ER if any life threatening symptoms Clinical Impressions Clinical Impression: Otitis media, Otitis externa Instructions Patient Instructions: Middle Ear Infection, DI for Otitis Externa Discharge ED Provider: Carolynn Bobby [facility] [facility] [place] General Stated complaint: right ear pain Mode of Arrival: Ambulatory Source of Information: Patient Limitations: No Limitations Time Seen by Provider: 07/02/22 14:21 Description of Symptoms (Recalled from Triage Doc. by RN): PATIENT C/O BIATERAL EAR PAIN, DIZZINESS AND NAUSEA SINCE THIS MORNING HEENT Symptoms (Recalled from RN notes): Yes Resp Symptoms (Recalled from RN notes): No Skin Symptoms (Recalled from RN notes): No MS Symptoms (Recalled from RN notes): No Functional Status (Recalled from RN notes): WNL History of Present Illness Provider Complaint: Patient states that she has been having bilateral ear pain that is worse in the right and outside of right ear tender to the touch States that it has made her head hurt and at times she felt a little dizzy from it being so clogged up States that today it was hurting worse so she came in to get it checked out Related Data Previous Rx's Medication Instructions Recorded azithromycin 250 mg tablet 250 mg PO DIRECTED #6 tabs 02/25/22 benzonatate 100 mg capsule 100 mg PO Q8HP PRN Cough #30 caps 02/25/22 cefdinir 300 mg capsule 300 mg PO BID #20 caps 07/02/22 ciprofloxacin 0.3 %-dexamethasone 4 drp otic (ear) BID 7 days #7.5 mL 07/02/22 0.1 % ear drops,suspension (Ciprodex) methylprednisolone 4 mg tablets in See Rx Instructions .Route 07/02/22 a dose pack (Medrol (Zach)) .COMPLEX 6 days #21 tabs Allergies Allergy/AdvReac Type Severity Reaction Status Date / Time amoxicillin [AMOXICILLIN] Allergy Intermediate Verified 02/05/22 16:27 Sulfa (Sulfonamide Allergy Intermediate Verified 02/05/22 16:27 Antibiotics) [SULFA (SULFONAMIDE ANTIBIOTICS)] Penicillins Allergy Verified 07/02/22 14:18 Worker's Comp Is this a Worker's Comp case?: No [facility] Medical History (Updated 07/02/22 @ 14:30 by Carolynn Bobby APRN) Asthma Surgical History (Updated 07/02/22 @ 14:17 by Jackie Baez RN) History of cholecystectomy History of eye surgery History of hernia repair History of tonsillectomy History of tubal ligation History of tympanostomy tube placement Social History (Updated 07/02/22 @ 14:17 by Jackie Baez RN) Smoking Status: Never smoker alcohol intake: never current occupational status: employed Travel in the last 8 weeks: None ROS Obtained: Yes All systems reviewed & no additional complaints except as documented and Yes Systems reviewed as appropriate & no additional complaints except as documented Constitutional Constitutional: Reports system reviewed and no additional complaints, except
[2022-07-02 14:35] VITALS: BP 131/89; PULSE 87; RESP 18; TEMP 36.8; O2SAT 100
== END 2022-07-02 14:38 | disposition home or self-care (01) ==
PROVIDERS: Emergency Provider Nurse Practitioner; PCP Internal Medicine Adolescent Medicine
DX: H60.91 Unspecified otitis externa, right ear (principal); H66.91 Otitis media, unspecified, right ear
CPT/HCPCS: 99212; G0463

== ENCOUNTER 2022-07-22 08:57 | Emergency (ER) | payer OTHER, SELFPAY ==
--- NOTE | 2022-07-22 08:59 | EXP.UTC ---
Discharge Plan Disposition Patient Disposition: Home, Self-Care Condition: Good Prescriptions Prescriptions: New azithromycin [Zithromax] 250 mg tablet 250 mg PO UD DOSE PK Qty: 6 0RF Rx Instructions: Take two (2) tablets today, then one (1) tablet days #2 thru #5 benzonatate [benzonatate] 100 mg capsule 100 mg PO TIDP PRN (Reason: Cough) Qty: 30 0RF methylprednisolone 4 mg Tablets,Dose Pack 4 mg PO DIRECTED Qty: 21 0RF oseltamivir [Tamiflu] 75 mg capsule 75 mg PO BID Qty: 10 0RF No Action methylprednisolone [Medrol (Zach)] 4 mg tablets,dose pack See Rx Instructions .Route .COMPLEX 6 Days Qty: 21 0RF Rx Instructions: taper pack; cefdinir 300 mg capsule 300 mg PO BID Qty: 20 0RF ciprofloxacin-dexamethasone [Ciprodex] 0.3-0.1 % drops,suspension 4 drp otic (ear) BID 7 Days Qty: 7.5 0RF Rx Instructions: apply to right ear azithromycin 250 MG tablet 250 mg PO DIRECTED Qty: 6 0RF Rx Instructions: Take two (2) tablets on day #1, then one (1) tablet day #2 thru #5 benzonatate 100 MG capsule 100 mg PO Q8HP PRN (Reason: Cough) Qty: 30 0RF Referrals Follow up/Referrals: Luca Salgado MD [Primary Care Provider] - See instructions Activity Restrictions/Add. Instructions Additional Instructions/Restrictions: Drink plenty of fluids. Take tylenol or ibuprofen for pain or fever. Take the medications as directed. Follow up with your regular doctor. GO TO THE ER FOR ANY WORSENING SYMPTOMS Clinical Impressions Clinical Impression: Sinusitis, Bronchitis Stand Alone Forms Stand Alone Forms: Work/School Release Instructions Patient Instructions: Sinusitis, DI for Sinusitis, DI for Acute Bronchitis Discharge ED Provider: Isak Fox [facility] General Stated complaint: possible sinus infection Time Seen by Provider: 07/22/22 08:59 History of Present Illness Provider Complaint: She states that for the past 2 days she has had worsening sinus and chest congestion. She denies fever. Related Data Previous Rx's Medication Instructions Recorded azithromycin 250 mg tablet 250 mg PO DIRECTED #6 tabs 02/25/22 benzonatate 100 mg capsule 100 mg PO Q8HP PRN Cough #30 caps 02/25/22 cefdinir 300 mg capsule 300 mg PO BID #20 caps 07/02/22 ciprofloxacin 0.3 %-dexamethasone 4 drp otic (ear) BID 7 days #7.5 mL 07/02/22 0.1 % ear drops,suspension (Ciprodex) methylprednisolone 4 mg tablets in See Rx Instructions .Route 07/02/22 a dose pack (Medrol (Zach)) .COMPLEX 6 days #21 tabs azithromycin 250 mg tablet 250 mg PO UD DOSE PK #6 tabs 07/22/22 (Zithromax) benzonatate 100 mg capsule 100 mg PO TIDP PRN Cough #30 caps 07/22/22 methylprednisolone 4 mg tablets in 4 mg PO DIRECTED #21 tabs 07/22/22 a dose pack oseltamivir 75 mg capsule (Tamiflu) 75 mg PO BID #10 caps 07/22/22 Allergies Allergy/AdvReac Type Severity Reaction Status Date / Time amoxicillin [AMOXICILLIN] Allergy Intermediate Verified 07/22/22 09:22 Sulfa (Sulfonamide Allergy Intermediate Verified 07/22/22 09:22 Antibiotics) [SULFA (SULFONAMIDE ANTIBIOTICS)] Penicillins Allergy Verified 07/22/22 09:22 [facility] Medical History Asthma Surgical History History of cholecystectomy History of eye surgery History of hernia repair History of tonsillectomy History of tubal ligation History of tympanostomy tube placement Social History Smoking Status: Never smoker alcohol intake: never current occupational status: employed Travel in the last 8 weeks: None ROS Obtained: Yes All systems reviewed & no additional complaints except as documented Constitutional Constitutional: Denies chills, Denies fever(s) and Reports poor appetite Eyes Eyes: Denies eye discharge ENT Ears, Nose, Mo
[2022-07-22 09:19] VITALS: BP 138/82; PULSE 75; RESP 18; TEMP 36.8; O2SAT 98; BMI 39.6
[2022-07-22 09:55] VITALS: BP 138/82; PULSE 75; RESP 18; TEMP 36.8
== END 2022-07-22 09:59 | disposition home or self-care (01) ==
PROVIDERS: Emergency Provider Nurse Practitioner Family; PCP Internal Medicine Adolescent Medicine
DX: J40 Bronchitis, not specified as acute or chronic (principal); J32.9 Chronic sinusitis, unspecified
CPT/HCPCS: 99212; G0463

== ENCOUNTER 2022-10-06 16:20 | Emergency (ER) | payer OTHER, SELFPAY ==
[2022-10-06 16:30] VITALS: BP 116/85; PULSE 67; RESP 20; TEMP 37; O2SAT 99; BMI 39.2
[2022-10-06 16:49] LABS: UTC Strep Screen (Rapid) Negative (Negative)
--- NOTE | 2022-10-06 16:53 | EXP.UTC ---
Discharge Plan Disposition Patient Disposition: Home, Self-Care Condition: Good Prescriptions Prescriptions: New azithromycin [Zithromax Z-Zach] 250 mg tablet See Rx Instructions .ROUTE .COMPLEX 5 Days Qty: 6 0RF Rx Instructions: For 250 mg dose pack: take 500 mg today (day 1), then 250 mg for 4 days (days 2-5) methylprednisolone [Medrol (Zach)] 4 mg tablets,dose pack See Rx Instructions .Route .COMPLEX 6 Days Qty: 21 0RF Rx Instructions: taper pack; Referrals Follow up/Referrals: Luca Salgado MD [Primary Care Provider] - See instructions Activity Restrictions/Add. Instructions Additional Instructions/Restrictions: *Monitor Temp, Over the counter Motrin or Tylenol as directed/as needed Tylenol every 4 hours and Motrin every 6 hours (as long as your family doctor has told you that you can take it) for fever or pain. and straight to ER if unable to lower temp less than 101.0 after medication given *Warm salt water gargles may help to soothe the throat *Throat Lozenges? *Warm fluids like tea with honey may help to soothe the throat? *Sleep elevated *Humidifier/Vaporizer Your throat swab was sent for culture. Those results are typically sent to your primary care. Be sure to follow up in 2-3 days with your family doctor/primary care physician if no improvement so they can review those result and treat if necessary. If you don?t have a primary care doctor, I recommend you get one but in the mean time, you will have to return to a walk in clinic Follow up IMMEDIATELY for new or worsening symptoms or no Noticeable improvement over the next 48-72 hours. 911 for difficulty breathing or swallowing Clinical Impressions Clinical Impression: URI (upper respiratory infection) Instructions Patient Instructions: Sore Throat, Azithromycin Discharge ED Provider: Carolynn Bobby [facility] [place] HPI General Stated complaint: sore throat, dizzy Mode of Arrival: Ambulatory Source of Information: Patient Limitations: No Limitations Time Seen by Provider: 10/06/22 16:53 Description of Symptoms (Recalled from Triage Doc. by RN): PATIENT C/O SORE THROAT, DIZZINESS, FATIGUE, AND DIFFICULTY SWALLOWING SINCE YESTERDAY. RECENTLY EXPOSED TO STREP HEENT Symptoms (Recalled from RN notes): Yes Resp Symptoms (Recalled from RN notes): No Skin Symptoms (Recalled from RN notes): No MS Symptoms (Recalled from RN notes): No Functional Status (Recalled from RN notes): WNL History of Present Illness Provider Complaint: Patient states that she has been around her daughter that has strep throat and two coworkers with strep throat States that she has been having sore throat and feeling dizzy at times and feeling tired and achy feels like she has strep throat Related Data Previous Rx's Medication Instructions Recorded azithromycin 250 mg tablet See Rx Instructions PO .COMPLEX 5 10/06/22 (Zithromax Z-Zach) days #6 tabs methylprednisolone 4 mg tablets in See Rx Instructions .Route 10/06/22 a dose pack (Medrol (Zach)) .COMPLEX 6 days #21 tabs Allergies Allergy/AdvReac Type Severity Reaction Status Date / Time amoxicillin [AMOXICILLIN] Allergy Intermediate Verified 07/22/22 09:22 Sulfa (Sulfonamide Allergy Intermediate Verified 07/22/22 09:22 Antibiotics) [SULFA (SULFONAMIDE ANTIBIOTICS)] Penicillins Allergy Verified 07/22/22 09:22 Worker's Comp Is this a Worker's Comp case?: No [facility] Disclaimer: The information contained in this section may have been updated after the patient was seen, as this information can be updated by other users. Medical History Asthma Surgical History History of cholecystectomy History of eye surgery History of hernia repair History of tonsillectomy History of tubal ligation History of tympanostomy tube placement Social History (Updated 10/06/22 @
[2022-10-06 17:00] VITALS: BP 116/85; PULSE 67; RESP 20; TEMP 37; O2SAT 99
== END 2022-10-06 17:05 | disposition home or self-care (01) ==
PROVIDERS: Emergency Provider Nurse Practitioner; PCP Internal Medicine Adolescent Medicine
DX: J06.9 Acute upper respiratory infection, unspecified (principal)
CPT/HCPCS: 87880; 99212; 99213; G0463

== ENCOUNTER 2023-03-05 16:43 | Emergency (ER) | payer OTHER, SELFPAY ==
[2023-03-05 16:55] VITALS: BP 116/76; PULSE 85; RESP 18; TEMP 37; O2SAT 98; BMI 39.1
[2023-03-05 17:13] LABS: UTC Strep Screen (Rapid) Negative (Negative)
--- NOTE | 2023-03-05 17:22 | EXP.UTC ---
Discharge Plan Disposition Patient Disposition: Home, Self-Care Condition: Good Prescriptions Prescriptions: New benzonatate 100 mg capsule 100 mg PO TID PRN (Reason: cough) Qty: 30 0RF methylprednisolone [Medrol (Zach)] 4 mg tablets,dose pack See Rx Instructions .Route .COMPLEX 6 Days Qty: 21 0RF Rx Instructions: taper pack; guaifenesin [Mucinex] 600 mg tablet extended release 12hr 600 - 1,200 mg PO BID PRN (Reason: cough) Qty: 20 0RF fluticasone propionate [Flonase Allergy Relief] 50 mcg/actuation spray,suspension 1 - 2 spray intranasal DAILY Qty: 16 0RF Rx Instructions: administer into each nostril daily azithromycin [Zithromax Z-Zach] 250 mg tablet See Rx Instructions .ROUTE .COMPLEX 5 Days Qty: 6 0RF Rx Instructions: For 250 mg dose pack: take 500 mg today (day 1), then 250 mg for 4 days (days 2-5) Referrals Follow up/Referrals: Luca Salgado MD [Primary Care Provider] - See instructions Activity Restrictions/Add. Instructions Additional Instructions/Restrictions: Start antibiotic today. Be sure to complete entire prescription even if feeling better Monitor temp. Tylenol every 4 hours as needed and / or ibuprofen every 6 hours as needed ( As long as your primary care physician has told you that it ok to take both. For fever/aches/pains ER if no less than 101 despite Tylenol or Motrin Humidifier/vaporizer or hot steamy shower Mucinex during the day for your cough and cough suppressant only at night. Be sure to drink lots of water. *Tessalon Perles will not cause drowsiness but use at bedtime to help stop cough so that you may get some rest. *Start steroid today. Helps with inflammation therefore, cough and wheezing. Follow directions on the package. Reviewed side effects. Patient reports taking them before. Follow up IMMEDIATELY for new or worsening of symptoms OR no noticeable improvement over the next 48-72 hours. 911 immediately for any life threatening symptoms such as chest pain or difficulty breathing Clinical Impressions Clinical Impression: Sinusitis, Bronchitis Instructions Patient Instructions: DI for Sinusitis, Sinusitis, Acute Bronchitis Discharge ED Provider: Carolynn Bobby [facility] [place] HPI General Stated complaint: Coughing, drainage, sore throat, headache Mode of Arrival: Ambulatory Source of Information: Patient Limitations: No Limitations Time Seen by Provider: 03/05/23 17:22 Description of Symptoms (Recalled from Triage Doc. by RN): PATIENT C/O PRODUCTIVE COUGH, SORE THROAT, AND RUNNY NOSE X 1 WEEK HEENT Symptoms (Recalled from RN notes): Yes Resp Symptoms (Recalled from RN notes): Yes Skin Symptoms (Recalled from RN notes): No MS Symptoms (Recalled from RN notes): No Functional Status (Recalled from RN notes): WNL History of Present Illness Provider Complaint: Patient states that she has been having sinus congestion and pressure, cough, drianage in the back of her throat, sore throat and at times a productive cough and hoarse States that she has tried OTC medication but none has helped much so today when she was still feeling bad and having a sinus headache she came in Related Data Previous Rx's Medication Instructions Recorded azithromycin 250 mg tablet See Rx Instructions PO .COMPLEX 5 03/05/23 (Zithromax Z-Zach) days #6 tabs benzonatate 100 mg capsule 100 mg PO TID PRN cough #30 caps 03/05/23 fluticasone propionate 50 1 - 2 spray intranasal DAILY #16 03/05/23 mcg/actuation nasal grams spray,suspension (Flonase Allergy Relief) guaifenesin 600 mg tablet, 600 - 1,200 mg PO BID PRN cough 03/05/23 extended release 12 hr (Mucinex) #20 tabs methylprednisolone 4 mg tablets in See Rx Instructions .Route 03/05/23 a dose pack (Medrol (Zach)) .COMPLEX 6 days #21 tabs Allergies Allergy/AdvReac Type Severity Reaction Status Date / Time amoxicillin [AMOXICILLIN] Allergy Intermediate Verified 07/22
[2023-03-05 17:35] VITALS: BP 116/76; PULSE 85; RESP 18; TEMP 37; O2SAT 98
== END 2023-03-05 17:39 | disposition home or self-care (01) ==
PROVIDERS: Emergency Provider Nurse Practitioner; PCP Internal Medicine Adolescent Medicine
DX: J01.90 Acute sinusitis, unspecified (principal); J20.9 Acute bronchitis, unspecified; J45.909 Unspecified asthma, uncomplicated
CPT/HCPCS: 87880; 99212; 99214; G0463

== ENCOUNTER 2023-03-29 16:41 | Emergency (ER) | payer OTHER, SELFPAY ==
[2023-03-29 16:45] VITALS: BP 129/85; PULSE 93; RESP 20; TEMP 36.7; O2SAT 99; BMI 39.4
--- NOTE | 2023-03-29 17:08 | EXP.UTC ---
Discharge Plan Disposition Patient Disposition: Home, Self-Care Condition: Good Prescriptions Prescriptions: New doxycycline hyclate 100 mg capsule 100 mg PO BID 7 Days Qty: 14 0RF pseudoephedrine HCl [Sudafed 12 Hour] 120 mg tablet extended release 120 mg PO Q12H PRN (Reason: nasal congestion) Qty: 20 0RF benzonatate 100 mg capsule 100 mg PO TID PRN (Reason: cough) Qty: 30 0RF methylprednisolone [Medrol (Zach)] 4 mg tablets,dose pack See Rx Instructions .Route .COMPLEX 6 Days Qty: 21 0RF Rx Instructions: taper pack; Referrals Follow up/Referrals: Luca Salgado MD [Primary Care Provider] - See instructions Activity Restrictions/Add. Instructions Additional Instructions/Restrictions: *Monitor Temp, Over the counter Motrin or Tylenol as directed/as needed Tylenol every 4 hours and Motrin every 6 hours (as long as your family doctor has told you that you can take it) for fever or pain. and straight to ER if unable to lower temp less than 101.0 after medication given *Warm salt water gargles may help to soothe the throat *Throat Lozenges? *Warm fluids like tea with honey may help to soothe the throat? *Sleep elevated *Humidifier/Vaporizer *Flonase 2 sprays in each nostril daily but be aware that it may take 2-3 days before you notice improvement Take medication as prescribed Follow up with your Family Doctor if no improvement or any worsening of symptoms Follow up IMMEDIATELY for new or worsening symptoms or no Noticeable improvement over the next 48-72 hours. 911 for difficulty breathing or swallowing Clinical Impressions Clinical Impression: Sinusitis Qualifiers: Sinusitis location: unspecified location Chronicity: unspecified Qualified Code(s): J32.9 - Chronic sinusitis, unspecified Instructions Patient Instructions: DI for Sinusitis, Sinusitis, Doxycycline, Methylprednisolone Discharge ED Provider: Carolynn Bobby [facility] General Stated complaint: congestion, cough,sore throat Mode of Arrival: Ambulatory Source of Information: Patient Limitations: No Limitations Time Seen by Provider: 03/29/23 17:08 Description of Symptoms (Recalled from Triage Doc. by RN): PATIENT C/O PERSISTANT COUGH, THICK SINUS DRAINAGE, HEADACHE AND SORE THROAT WHILE COUGHING X 5 DAYS HEENT Symptoms (Recalled from RN notes): Yes Resp Symptoms (Recalled from RN notes): Yes Skin Symptoms (Recalled from RN notes): No MS Symptoms (Recalled from RN notes): No Functional Status (Recalled from RN notes): WNL History of Present Illness Provider Complaint: Patient states that for about a week she has been having sinus congestion and pressure, cough, thick mucous, headache/pressure and sore throat States that it has continued and she has tried several over the counter medications but nothing has helped so today when it wasnt any better she came in to get checked Related Data Previous Rx's Medication Instructions Recorded benzonatate 100 mg capsule 100 mg PO TID PRN cough #30 caps 03/29/23 doxycycline hyclate 100 mg capsule 100 mg PO BID 7 days #14 caps 03/29/23 methylprednisolone 4 mg tablets in See Rx Instructions .Route 03/29/23 a dose pack (Medrol (Zach)) .COMPLEX 6 days #21 tabs pseudoephedrine HCl 120 mg 120 mg PO Q12H PRN nasal 03/29/23 tablet,extended release (Sudafed congestion #20 tabs 12 Hour) Allergies Allergy/AdvReac Type Severity Reaction Status Date / Time amoxicillin [AMOXICILLIN] Allergy Intermediate Verified 07/22/22 09:22 Sulfa (Sulfonamide Allergy Intermediate Verified 07/22/22 09:22 Antibiotics) [SULFA (SULFONAMIDE ANTIBIOTICS)] Penicillins Allergy Verified 07/22/22 09:22 Worker's Comp Is this a Worker's Comp case?: No [facility] Disclaimer: The information contained in this section may have been updated after the patient was seen, as this information can be updated by other users. Medical History (Reviewed 07/23/22 @
[2023-03-29 17:19] VITALS: BP 129/85; PULSE 93; RESP 20; TEMP 36.7; O2SAT 99
== END 2023-03-29 17:24 | disposition home or self-care (01) ==
PROVIDERS: Emergency Provider Nurse Practitioner; PCP Internal Medicine Adolescent Medicine
DX: J01.90 Acute sinusitis, unspecified (principal); J45.909 Unspecified asthma, uncomplicated
CPT/HCPCS: 99212; 99214; G0463

== ENCOUNTER 2023-06-03 13:03 | Emergency (ER) | payer OTHER, SELFPAY ==
[2023-06-03 13:30] VITALS: BP 124/71; PULSE 86; RESP 18; TEMP 36.7; O2SAT 99; BMI 37.9
--- NOTE | 2023-06-03 13:46 | EXP.UTC ---
Discharge Plan Disposition Patient Disposition: Home, Self-Care Condition: Good Prescriptions Prescriptions: New ciprofloxacin-dexamethasone [Ciprodex] 0.3-0.1 % drops,suspension 4 drp otic (ear) BID 7 Days Qty: 7.5 0RF Rx Instructions: right ear as directed cefdinir 300 mg capsule 300 mg PO BID 10 Days Qty: 20 0RF Referrals Follow up/Referrals: Luca Salgado MD [Primary Care Provider] - See instructions Activity Restrictions/Add. Instructions Additional Instructions/Restrictions: Take oral medication as prescribed Use prescribed drops in ear as directed Follow up with your Family Doctor if no improvement or any worsening of symptoms Straight to ER if any life threatening symptoms Clinical Impressions Clinical Impression: Otitis externa Qualifiers: Otitis externa type: unspecified type Chronicity: unspecified Laterality: unspecified laterality Qualified Code(s): H60.90 - Unspecified otitis externa, unspecified ear Otitis media Qualifiers: Otitis media type: unspecified Laterality: right Qualified Code(s): H66.91 - Otitis media, unspecified, right ear Instructions Patient Instructions: Middle Ear Infection, DI for Otitis Externa Discharge ED Provider: Carolynn Bobby [facility] General Stated complaint: Rt ear/jaw pain Mode of Arrival: Ambulatory Source of Information: Patient Limitations: No Limitations Time Seen by Provider: 06/03/23 13:47 Description of Symptoms (Recalled from Triage Doc. by RN): right ear ache HEENT Symptoms (Recalled from RN notes): Yes Resp Symptoms (Recalled from RN notes): No Skin Symptoms (Recalled from RN notes): No MS Symptoms (Recalled from RN notes): No Functional Status (Recalled from RN notes): n/a History of Present Illness Provider Complaint: Patient states that she has been having pain in her right ear and feels like it is moving to the outside Her ear is getting sore and hurts when she tries to open her mouth States that also now her left ear is starting to hurt so she came in to get it checked Related Data Previous Rx's Medication Instructions Recorded cefdinir 300 mg capsule 300 mg PO BID 10 days #20 caps 06/03/23 ciprofloxacin 0.3 %-dexamethasone 4 drp otic (ear) BID 7 days #7.5 mL 06/03/23 0.1 % ear drops,suspension (Ciprodex) Allergies Allergy/AdvReac Type Severity Reaction Status Date / Time amoxicillin [AMOXICILLIN] Allergy Intermediate Verified 06/03/23 13:39 Sulfa (Sulfonamide Allergy Intermediate Verified 06/03/23 13:39 Antibiotics) [SULFA (SULFONAMIDE ANTIBIOTICS)] Penicillins Allergy Verified 06/03/23 13:39 Worker's Comp Is this a Worker's Comp case?: No [facility] Disclaimer: The information contained in this section may have been updated after the patient was seen, as this information can be updated by other users. Medical History Asthma Surgical History History of cholecystectomy History of eye surgery History of hernia repair History of tonsillectomy History of tubal ligation History of tympanostomy tube placement Social History Smoking Status: Never smoker alcohol intake: never current occupational status: employed Travel in the last 8 weeks: None ROS Obtained: Yes All systems reviewed & no additional complaints except as documented and Yes Systems reviewed as appropriate & no additional complaints except as documented Constitutional Constitutional: Reports system reviewed and no additional complaints, except as documented and Reports as per HPI ENT Ears, Nose, Mouth, and Throat: Reports system reviewed and no additional complaints, except as documented, Reports as per HPI and Reports otalgia Cardiovascular Cardiovascular: Reports system reviewed and no additional complaints, except as documented and Reports as per HPI Respiratory R
[2023-06-03 14:11] VITALS: BP 124/71; PULSE 86; RESP 18; TEMP 36.7; O2SAT 99
== END 2023-06-03 14:00 | disposition home or self-care (01) ==
PROVIDERS: Emergency Provider Nurse Practitioner; PCP Internal Medicine Adolescent Medicine
DX: H60.93 Unspecified otitis externa, bilateral (principal); H66.91 Otitis media, unspecified, right ear; J45.909 Unspecified asthma, uncomplicated
CPT/HCPCS: 99212; 99214; G0463